=== PATIENT | male | born 1975 | race Caucasian/White ===

== ENCOUNTER 2017-06-11 06:01 | Day surgery (SDC) | payer OTHER ==
[~2017-06-11] VITALS: Ht 165.1 cm; Wt 83.9 kg
[2017-06-11] MEDS ORDERED: ceFAZolin 2,000 MG in NACL 0.9% 100 ML IV ONE (07:55)
[2017-06-11] MEDS ORDERED: BUPIVACAINE-MPF 0.25% 30 ML VIAL INJ ONE (09:03)
[2017-06-11] MEDS ORDERED: ceFAZolin 1,000 MG VIAL ONE (09:04)
[2017-06-11] MEDS ORDERED: ONDANSETRON 4 MG/2 ML VIAL ONE (09:11)
[2017-06-11] MEDS ORDERED: SEVOFLURANE 250 ML BTL INH ONE (09:11)
[2017-06-11] MEDS ORDERED: DEXAMETHASONE 4 MG/ML VIAL ONE (09:11)
[2017-06-11] MEDS ORDERED: PROPOFOL 200 MG/20 ML VIAL IV ONE ×2 (09:11)
[2017-06-11] MEDS ORDERED: fentaNYL 0.05 MG/ML VIAL ONE (09:19)
[2017-06-11] MEDS ORDERED: HYDROmorphone PFS 2 MG/ML SYR ONE (09:19)
[2017-06-11] MEDS ORDERED: HYDROmorphone PFS 2 MG/ML SYR IVP PRN (11:30)
[2017-06-11] MEDS ORDERED: MORPHINE SULFATE 2 MG/ML SYR IVP PRN (11:30)
[2017-06-11] MEDS ORDERED: ACETAMINOPHEN 325 MG TAB PO PRN (11:30)
[2017-06-11] MEDS ORDERED: HYDROcodone/APAP 5/325 MG 1 TAB TAB PO PRN (11:30)
[2017-06-11] MEDS ORDERED: BISACODYL 10 MG SUPP PR PRN (11:30)
[2017-06-11] MEDS ORDERED: MORPHINE SULFATE 4 MG/ML SYR IV PRN (11:30)
[2017-06-11] MEDS ORDERED: HYDROmorphone PFS 2 MG/ML SYR IVP ONE (12:00)
== END 2017-06-11 13:25 | disposition home or self-care (01) ==
LOC: MDS 06:01 → MMU 06:01 → MDS 13:25
PROVIDERS: ATTEND Surgery
DX: K40.20 Bilateral inguinal hernia, without obstruction or gangrene, not specified as recurrent (principal); E66.9 Obesity, unspecified; Z98.890 Other specified postprocedural states; Z79.899 Other long term (current) drug therapy
CPT/HCPCS: 49505; 71010; 93005; J0690; J1100; J1170; J2405; J2704; J3010; J3490; J7060; J7120; C1781

== ENCOUNTER 2017-06-14 19:51 | Emergency (ER) | payer OTHER ==
[~2017-06-14] VITALS: Ht 165.1 cm; Wt 81.6 kg
[2017-06-14 20:40] VITALS: BP 106/73
--- NOTE | 2017-06-14 23:30 | NUR ---
PATIENT IS A 41 Y/O MALE WHO PRESENTS TO THE ED C/O BACK PAIN. PT STATES, "MY BACK HAS BEEN HURTING FOR A FEW DAYS." PT REPORTS 8/10 ACHING PAIN THAT DOES NOT RADIATE. PT DENIES CP, SOB, N/V/D. PT AAOX4, RR EVEN/UNLABORED. PT REPOSITIONED FOR COMFORT, BED IN LOWEST POSITION. ER MD DR. IRIZARRY NOTIFIED. WILL CONTINUE TO MONITOR.
[2017-06-14] MEDS: KETOROLAC 60 MG/2 ML VIAL IM ONE (23:59)
[2017-06-15 01:00] VITALS: BP 111/80
--- NOTE | 2017-06-15 01:00 | NUR ---
PATIENT LEFT WITHOUT DC INSTRUCTION. ER MADE AWARE, YEAST PUMPER RON MADE AWARE.
== END 2017-06-15 01:00 | disposition home or self-care (01) ==
LOC: MED 19:51
DX: M54.5 Low back pain (principal); Z88.8 Allergy status to other drugs, medicaments and biological substances
CPT/HCPCS: 81002; 96372; 99283; J1885